=== PATIENT | female | born 1960 | race Caucasian/White ===

== ENCOUNTER → 2016-02-16 | Outpatient (CLI) | payer BC ==
--- NOTE | 2016-02-16 14:45 | Diagnostic Imaging Report ---
EXAMINATION: Lumbar spine, 5 views including flexion and extension. 7 images. COMPARISON: None. HISTORY: 55-year-old female, scoliosis. Left hip pain. FINDINGS: There is a lumbar dextroscoliosis. There are 5 lumbar type vertebral bodies. The bones do appear somewhat demineralized. There is unremarkable anterior to posterior static alignment of the lumbar spine. There is no abnormal motion with flexion or extension. There is little change in patient positioning with flexion and extension. Multiple attempts at positioning of the patient were performed. There is no identified compression deformity. There is mild disc height loss at L3-L4 and L4-L5. There is moderate disc height loss at L5-S1. There are mild bilateral facet degenerative changes at L4-L5 and L5-S1. The sacroiliac joints are grossly unremarkable in appearance. IMPRESSION: 1. Lumbar dextroscoliosis with disc and facet degenerative changes of the lumbar spine which are most notable at L3-L4, L4-L5, and L5-S1 as described above. 2. The bones do appear demineralized. 3. No identified compression deformity. 4. No abnormal motion with flexion or extension. Little change in patient positioning with flexion and extension views despite multiple attempts. Dictated by: Dictated on workstation # [id number]
--- NOTE | 2016-02-16 14:46 | Diagnostic Imaging Report ---
EXAMINATION: Left hip, 2 views. COMPARISON: None. HISTORY: 55-year-old female, left hip pain. FINDINGS: The left hip is not dislocated. There is no pronounced joint space loss of the left hip, osteophyte formation, or subchondral cystic change. There is no identified acute fracture. The pubic symphysis is unremarkable in appearance. IMPRESSION: 1. Unremarkable appearance of the left hip joint. Dictated by: Dictated on workstation # [id number]
== END ==
LOC: RAD 13:19
PROVIDERS: ATTEND Neurological Surgery
DX: M25.552 Pain in left hip (principal); M41.86 Other forms of scoliosis, lumbar region
CPT/HCPCS: 72100; 73502